=== PATIENT | female | born 1990 | race Caucasian/White ===

== ENCOUNTER → 2017-01-02 | Outpatient (REF) | payer OTHER ==
[~2017-01-02] MED LIST: /QUET25TA PO; BACL10TA2 OR; Birth control pill PO; CELE10TA OR; DOCQ100C PO; DOXY-197 PO; FLUC100T PO; IMIT50TA PO; LYRI75CA PO; MEGA625S PO; MEGE40TA2 PO; MELO15TA4 PO; NAPR250T45 PO; NORCOBULK PO; PREG50CA OR; VALT1TAB PO; VOLT1GEL EX; ZOLO50TA PO
== END ==
LOC: M LABNEURO 13:33
PROVIDERS: ATTEND Physician Assistant Medical
DX: G89.29 Other chronic pain (principal)

== ENCOUNTER → 2017-04-05 | Outpatient (REF) | payer OTHER ==
[~2017-04-05] MED LIST changes: +ALBU83IN INH; +ANOR1AER INH; +CARI350T PO; +CLON0.5T PO; +DEPO150I IM; +HYDR-643 PO; +IPRASOL4 IN; +MONT10TA2 PO; +NORC1TAB4 PO; +NYST50SS SS; +PRED10TA2 PO; +PRED20TA PO; +PROT1TAB2 PO; +PULM90IN INH; +SUMA100T2 PO; +VENTAER INH
[2017-04-10 10:09] LABS: BENZODIAZEPINES, URINE SCREEN Negative ng/mL (Cutoff=200); METHADONE, URINE SCREEN Negative ng/mL (Cutoff=300); OPIATES, URINE Positive ng/mL (Cutoff=300); pH, URINE 6.6 (4.5-8.9)
== END ==
LOC: M LABNEURO 12:49
PROVIDERS: ATTEND Physician Assistant Medical
DX: G89.4 Chronic pain syndrome (principal)

== ENCOUNTER → 2017-06-13 | Outpatient (REF) | payer OTHER ==
[2017-06-22 00:07] LABS: BENZODIAZEPINES, URINE SCREEN See Final Results ng/mL (Cutoff=200); METHADONE, URINE SCREEN Negative ng/mL (Cutoff=300); OPIATES, URINE Positive ng/mL (Cutoff=300); pH, URINE 5.4 (4.5-8.9)
== END ==
LOC: MERGE 11:01 → M LABNEURO 11:01
PROVIDERS: ATTEND Physician Assistant Medical
DX: G89.4 Chronic pain syndrome (principal)

== ENCOUNTER → 2017-07-13 | Outpatient (CLI) | payer OTHER ==
--- NOTE | 2017-07-13 13:18 | REP ---
CT study of the chest without contrast: History: Ground-glass opacities in the lung bases. Comparison CT studies are reviewed, the most recent of these is from May 07, 2017. The lung bases are reviewed from abdominal CT studies from [address] findings: There are multiple bilateral anterolateral rib fractures which are healing. There is no evidence of pneumothorax or hydrothorax. No mediastinal mass or hematoma is seen. No pericardial effusion is seen. The visualized upper abdominal structures are unremarkable. No extrathoracic mass or adenopathy is observed. There are multifocal areas of ground-glass opacity. On today's exam, these most prominently involve the left upper lobe perihilar region, lingular segment of the left upper lobe, and left lower lobe infrahilar region. Previously noted areas of right upper, middle and lower lobe ground-glass opacity have resolved. The pattern on the left is a different distribution than was present on the most recent prior study of May 11, 2017 and this pattern was different than that seen in April 2017. No other abnormality is observed. No significant pulmonary nodule is seen. There is a granulomatous calcification in the left lower lobe. Impression: 1. Multiple healing rib fractures bilaterally. 2. Waxing and waning pattern of bilateral ground-glass opacities. The current study shows scattered similar opacities in the left lung in a different distribution than on the prior study. Question hypersensitivity or eosinophilic pneumonitis. Signed by Vinicius Infante MD 07/13/2017 05:10 P
== END ==
LOC: M RAD 09:05 → MERGE 09:30
PROVIDERS: ATTEND Internal Medicine Pulmonary Disease
DX: R91.8 Other nonspecific abnormal finding of lung field (principal)

== ENCOUNTER → 2017-07-14 | Outpatient (CLI) | payer OTHER ==
--- NOTE | 2017-07-14 12:26 | REP ---
UNILATERAL RIGHT RIBS, PA CHEST, FIVE VIEWS. HISTORY: Contusion. CONCLUSIONS: 07/12/2017 The lungs are clear. The heart is normal in size. The pulmonary vasculature is normal in appearance. There are healing fractures of the right 5th through 9th ribs and left 7th through 10th ribs. IMPRESSION: No acute disease. Signed by Reji Hyman MD 07/14/2017 12:30 P
== END ==
LOC: M WUC 11:06
PROVIDERS: ATTEND Physician Assistant
DX: S20.211A Contusion of right front wall of thorax, initial encounter (principal); X58.XXXA Exposure to other specified factors, initial encounter; Y92.89 Other specified places as the place of occurrence of the external cause; Y93.89 Activity, other specified; Y99.8 Other external cause status

== ENCOUNTER → 2017-07-20 | Outpatient (CLI) | payer OTHER ==
[2017-07-20 20:00] LABS: IMMUNOGLOBULIN M 92.8 MG/DL (40-230)
[2017-07-31 00:07] LABS: AUREOBASIDIUM PULLULANS Negative (Negative); D001-IgE D pteronyssinus <0.10 kU/L (Class 0); E001-IgE Cat Epith/Dander < 0.10 kU/L (Class 0); E005-IgE Dog Dander < 0.10 kU/L (Class 0); G002-IgE Bermuda Grass < 0.10 kU/L (Class 0); G008-IgE Kentucky Bluegrass < 0.10 kU/L (Class 0); IgG SERUM (part of Subclasses) 768 mg/dL (700-1600); IgG Subclass 1 437 mg/dL (248-810); IgG Subclass 2 234 mg/dL (130-555); IgG Subclass 3 33 mg/dL (15-102); IgG Subclass 4 72 mg/dL (2-96); M001-IgE Penicillium chrysogen < 0.10 kU/L (Class 0); M002 IgE Cladosporium herbaru < 0.10 kU/L (Class 0); M003 IgE Aspergillus fumigatu < 0.10 kU/L (Class 0); M006-IgE Alternaria alternata < 0.10 kU/L (Class 0); MICROPOLYSPORA FAENI AB Negative (Negative); PIGEON SERUM AB Negative (Negative); T001-IgE Maple/Box Elder < 0.10 kU/L (Class 0); T003-IgE Common Silver Birch < 0.10 kU/L (Class 0); T007-IgE Oak, White < 0.10 kU/L (Class 0); T008-IgE Elm, American < 0.10 kU/L (Class 0); T015-IgE Ash, White < 0.10 kU/L (Class 0); T041-IgE Hickory, White < 0.10 kU/L (Class 0); THERMOACTINOMYCES SACCHARI Negative (Negative); THERMOACTINOMYCES VULGARIS Negative (Negative); W001-IgE Ragweed, Short < 0.10 kU/L (Class 0); W009-IgE Plantain, English < 0.10 kU/L (Class 0); W014-IgE Pigweed, Rough < 0.10 kU/L (Class 0); W018-IgE Sheep Sorrel < 0.10 kU/L (Class 0)
== END ==
LOC: M SMT 10:12
PROVIDERS: ATTEND Internal Medicine Pulmonary Disease
DX: R91.8 Other nonspecific abnormal finding of lung field (principal); R05 Cough

== ENCOUNTER → 2017-09-13 | Outpatient (CLI) | payer OTHER ==
--- NOTE | 2017-09-13 16:55 | REP ---
CT of the chest without IV contrast: Comparisons are 05/11/2017, 09/20/2017 and 08/02/2017. On 05/11/2017. There were ground-glass opacities bilaterally. Of 07/13/2017. The previous ground-glass opacities had resolved , however, there were new ground-glass opacities. On 08/02/2017. The previous ground-glass opacities had resolved but there were new fewer ground-glass opacities. On the study today there are no ground-glass opacities. There are no lung nodules or masses. There are no infiltrates or effusions. There is no mediastinal or axillary adenopathy. Study is insensitive for hilar adenopathy in the absence of IV contrast. The unenhanced thoracic aorta is remarkable unremarkable. Cardiac size is normal. The visualized upper abdominal contents are unremarkable and unchanged. Impression: Negative CT study of the chest without IV contrast. The previous migrating ground-glass opacities have resolved. There are no nodules, masses, infiltrates or effusions. Signed by Vj Beltran MD 09/13/2017 04:46 P
== END ==
LOC: M RAD 14:09
PROVIDERS: ATTEND Internal Medicine Pulmonary Disease
DX: R91.8 Other nonspecific abnormal finding of lung field (principal)

== ENCOUNTER → 2017-10-18 | Outpatient (CLI) | payer OTHER ==
[~2017-10-18] MED LIST changes: -/QUET25TA PO; -ALBU83IN INH; -ANOR1AER INH; -BACL10TA2 OR; -Birth control pill PO; -CARI350T PO; -CELE10TA OR; -CLON0.5T PO; -DEPO150I IM; -DOCQ100C PO; -DOXY-197 PO; -FLUC100T PO; -HYDR-643 PO; -IMIT50TA PO; -IPRASOL4 IN; -LYRI75CA PO; -MEGA625S PO; -MEGE40TA2 PO; -MELO15TA4 PO; +METHACHOLINE KIT (J7674) INH; -MONT10TA2 PO; -NAPR250T45 PO; -NORC1TAB4 PO; -NORCOBULK PO; -NYST50SS SS; -PRED10TA2 PO; -PRED20TA PO; -PREG50CA OR; -PROT1TAB2 PO; -PULM90IN INH; -SUMA100T2 PO; -VALT1TAB PO; -VENTAER INH; -VOLT1GEL EX; -ZOLO50TA PO
== END ==
LOC: M CARPUL 07:54
DX: R05 Cough (principal); R06.00 Dyspnea, unspecified

== ENCOUNTER → 2017-11-21 | Outpatient (CLI) | payer OTHER ==
[2017-11-21 11:54] LABS: WEIGHT OF SWEAT LFT ARM 55.1 MG; WEIGHT OF SWEAT RT ARM QNS MG
[2017-11-21 11:55] LABS: SWEAT TEST LFT ARM 19.5 MEQ CL/L (0.0-40.0)
== END ==
LOC: M LAB 09:30
DX: J45.51 Severe persistent asthma with (acute) exacerbation (principal)
CPT/HCPCS: 89230

== ENCOUNTER → 2017-11-30 | Outpatient (CLI) | payer OTHER | LOC: M SMT 08:49 | DX: S22.42XD Multiple fractures of ribs, left side, subsequent encounter for fracture with routine healing (principal) | CPT/HCPCS: 71046 ==

== ENCOUNTER → 2018-05-15 | Outpatient (REF) | payer OTHER | LOC: M LAB REF 11:04 | DX: G89.29 Other chronic pain (principal) ==

== ENCOUNTER → 2018-06-28 | Outpatient (REF) | payer OTHER | LOC: M SFHCLERA 14:23 | DX: J02.9 Acute pharyngitis, unspecified (principal) ==

== ENCOUNTER → 2018-07-03 | Outpatient (REF) | payer OTHER | LOC: M LAB REF 17:30 | DX: J45.40 Moderate persistent asthma, uncomplicated (principal); R05 Cough ==

== ENCOUNTER → 2018-08-17 | Outpatient (CLI) | payer OTHER | LOC: M RAD 14:07 | DX: Z12.39 Encounter for other screening for malignant neoplasm of breast (principal); O92.6 Galactorrhea | CPT/HCPCS: 77066 ==

== ENCOUNTER → 2019-02-08 | Outpatient (REF) | payer OTHER ==
[~2019-02-08] MED LIST changes: +ALBU83IN INH; +ANOR1AER INH; +BACL10TA2 OR; +Birth control pill PO; +CARI1TAB7 PO; +CELE10TA OR; +CLON0.5T8 PO; +DEPO150I IM; +DOCQ100C PO; +DOXY-197 PO; +FLUC100T PO; +HYDR-643 PO; +IMIT50TA PO; +IPRA0.00 IN; +LYRI75CA PO; +MEGA625S PO; +MEGE40TA2 PO; +MELO15TA28 PO; -METHACHOLINE KIT (J7674) INH; +MONT10TA2 PO; +NAPR250T82 PO; +NORC1TAB7 PO; +NORCOBULK PO; +NYST50SS SS; +PRED10TA2 PO; +PRED20TA PO; +PREG50CA OR; +PROT1TAB2 PO; +PULM90IN INH; +SERO1TAB3 PO; +SUMA100T2 PO; +VALT1TAB PO; +VENTAER INH; +VOLT1GEL EX; +ZOLO50TA PO
[2019-02-14 14:14] LABS: ALPRAZOLAM, URINE Negative (Cutoff=100); BENZODIAZEPINES, URINE Positive ng/mL (Cutoff=100); CLONAZEPAM, URINE Positive (.); CLONAZEPAM, URINE CONFIRM 266 ng/mL (Cutoff=100); CODEINE, URINE Negative (Cutoff=100); FLURAZEPAM, URINE Negative (Cutoff=100); HYDROCODONE CONFIRM, URINE 3660 ng/mL (Cutoff=100); HYDROCODONE, URINE Positive (.); HYDROMORPHONE CONFIRM, URINE 566 ng/mL (Cutoff=100); HYDROMORPHONE, URINE Positive (.); LORAZEPAM, URINE Negative (Cutoff=100); MIDAZOLAM, URINE Negative (Cutoff=100); MORPHINE, URINE Negative (Cutoff=100); NORDIAZEPAM, URINE Negative (Cutoff=100); OPIATES, URINE Positive ng/mL (Cutoff=300); OXAZEPAM, URINE Negative (Cutoff=100); TEMAZEPAM, URINE Negative (Cutoff=100); TRIAZOLAM, URINE Negative (Cutoff=100)
== END ==
LOC: M LAB REF 12:34
PROVIDERS: ATTEND Physician Assistant Medical
DX: G89.4 Chronic pain syndrome (principal)

== ENCOUNTER 2019-07-02 01:34 | Inpatient (IN) | payer OTHER ==
[~2019-07-02] VITALS: Ht 152.4 cm; Wt 39.7 kg
[2019-07-02] MEDS ORDERED: SOMA350T PO ×2 (01:52→02:17)
[2019-07-02] MEDS ORDERED: ALBU8.5H INH (02:17)
[2019-07-02] MEDS ORDERED: CLON0.5T8 PO (02:17)
[2019-07-02] MEDS ORDERED: IPRA0.00 INH (02:17)
[2019-07-02] MEDS ORDERED: IBUP1TAB6 PO (02:17)
[2019-07-02] MEDS ORDERED: METH2.5T48 PO (02:17)
[2019-07-02] MEDS ORDERED: dexameTHASONE 20 MG/5 ML VIAL (J1100) IV ONE (02:30)
[2019-07-02 02:38] LABS: ABG BASE EXCESS -4.1 (-2.0-2.0); ABG O2 SATURATION 98.6 % (95.0-99.0); ABG PARTIAL PRESSURE CO2 38.9 mmHg (35.0-45.0); ABG PARTIAL PRESSURE O2 126.3 mmHg (75.0-100.0); ABG STANDARD HCO3 21.1 MEQ/L (22.0-26.0); ABG TOTAL CO2 22.2 MEQ/L (22.0-29.0); ABG pH (ARTERIAL) 7.351 UNITS (7.350-7.450)
[2019-07-02] MEDS: IPRATROPIUM 0.5MG/ALBUTEROL 2.5MG INH SOL UD 3ML (DUONEB)(J7620) NEB SCH ×6 (02:49→19:39)
[2019-07-02] MEDS: ALBUTEROL SULFATE 2.5 MG/0.5 ML INH NEB SOLN INH SCH ×3 (02:49→09:12)
[2019-07-02] MEDS ORDERED: methylPREDNISolone INJ 125 MG/2 ML VIAL (J2930) IV STA (03:28)
[2019-07-02] MEDS ORDERED: ALBUTEROL SULFATE 2.5 MG/0.5 ML INH NEB SOLN NEB PRN (03:30)
--- NOTE | 2019-07-02 03:33 | HPEPDOC ---
[facility] Medical History & Physical Date of Admission Jul 02, 2019 Date of Service: Jul 02, 2019 Primary Care Physician: A Other Provider Mariano Donovan MD Attending Physician: NOLBERTO ELENA MD History and Physical TIME OF SERVICE: 3:15 AM CHIEF COMPLAINT: Shortness of breath HISTORY OF PRESENT ILLNESS: This is a 28-year-old female who presented to [facility] complaints of dyspnea for 2 days associated with a cough productive of clear sputum. Associated symptoms included runny nose, fever, chills, muscle aches, poor appetite. The initial workup [place] was remarkable for WBC count of 18, lactic acid of 4.8, VBG 7.35, PCO2 42, PCO2 22, and a CTA that was negative for PE but identified pneumonia. Started on DuoNeb's, Solu-Medrol, Levaquin and IV fluids. Repeat lactic acid was 2.9. She was very anxious and given a dose of Ativan. Currently, she reports that her dyspnea still severe. She was crying teary because a friend recently . REVIEW OF SYSTEMS: 12 point review of systems negative except as listed in HPI PAST MEDICAL/ SURGICAL HISTORY: Asthma Mixed connective tissue disease. PTSD Fibromyalgia Migraines Anxiety Status post tubal ligation. Status post appendectomy. 3 SOCIAL HISTORY: Smoker. FAMILY HISTORY: Multiple relatives with asthma Diabetes Hypertension COPD ALLERGIES: Please see below. HOME MEDICATIONS: Please see below. PHYSICAL EXAMINATION: VITAL SIGNS: Please see below. GENERAL APPEARANCE: Slim build, anxious, HEENT: Normocephalic, atraumatic. Has conjunctival injection from crying. Nasal cannula is in place, mucous membranes are moist and pink CARDIOVASCULAR: Tachycardic. There is no lower extremity edema LUNGS: She is able to speak full sentences but is using accessory muscles in breathing or rapid rate. There is expiratory wheezing bilaterally ABDOMEN: Flat MUSCULOSKELETAL: Range of motion intact in all 4 extremities INTEGUMENT: She has multiple tattoos NEUROLOGICAL: Cranial nerves II-12 grossly intact. Speech is not dysarthric PSYCHIATRIC: Alert and oriented to person, place and time, able to understand and follow commands, is anxious and is crying LABORATORY DATA: See history of present illness ABG done here showed pH of 7.35, PCO2 30, PO2 126 IMAGING: See history of present illness Chest x-ray done here showed right-sided pneumonia MICROBIOLOGY: n/a ASSESSMENT: Ms. Tony is a 20 yr old female with a past medical history of mixed connective tissue disease, asthma, migraines, anxiety, PTSD, and Fibromyalgia who will be admitted for management of sepsis due to pneumonia. PLAN: 1. Sepsis secondary to pneumonia SIRS criteria include elevated heart rate, elevated WBC count, and elevated lactic acid She received IV fluids and antibiotics at [place] Plan: Admit to ICU/continue with IV fluids/follow-up lactic acid, blood cx & influenza 2. Acute on chronic Asthma 2/2 PNA Plan: continuos pulse ox / c/w Vapotherm & levofloxacin/follow up repeat ABG/continue with steroids and Protonix/ Dunebs Q6H, Albuterol Q1HP / oral Prednisone w PPI / Magnesium IV / Tessalon Pearls / will ask RN to monitor peak flow Q12H 3. Tobacco abuse. Plan: Tobacco cessation education/patient declined nicotine patch 4.Low BMI Plan: order to delivery supervisor consult / f/u prealbumin 5.Mixed connective tissue disease. Plan: Continue home meds 6.PTSD / Fibromyalgia / Anxiety Plan: Continue home meds / daytime team may consider psychiatry consult 7.Migraines Plan: Continue home meds DVT prophylaxis with Lovenox. Disposition pending clinical course Vital Signs Vital Signs Date Time Temp Pulse Resp B/P (MAP) Pulse Ox O2 Delivery O2 Flow Rate FiO2 07/02/19 03:18 Nasal Cannula 25.0 45 07/02/19 02:36 106 07/02/19 01:52 97.1 19 119/70 (86) 94 Laboratory Data Labs 24H Laboratory Tests 2 07/02/19 02:27: Blood Gas Bicarbonate Standard 21.1L, Arterial Blood pH 7.351, Arterial Blood Partial Pressure CO2 38.9, Arterial Blood Partial Pressure O2 126.3H, Arterial Blood Total CO2 22.2, Arterial Blood HCO3 21.0L, Arterial Blood Base Excess - 4.1L, Arterial Blood Oxygen Saturation 98.6 Home Medications Scheduled Amitriptyline HCl (Amitriptyline HCl) 25 Mg Tablet, 25 MG PO QHS Fluconazole (Fluconazole) 100 Mg Tablet, 100 MG PO DAILY Fluticasone Furoate (Arnuity Ellipta) 200 Mcg Blst.w.dev, 200 MCG INH DAILY Fluticasone Propion/Salmeterol (Advair Hfa 230-21 Mcg Inhaler) 12 Gm Hfa.aer.ad, 2 PUFF INH BID Folic Acid (Folic Acid) 1 Mg Tablet, 1 MG PO DAILY Levofloxacin (Levaquin) 750 Mg Tablet, 750 MG PO DAILY Methotrexate Sodium (Methotrexate) 2.5 Mg Tablet, 12.5 MG PO 1XWK STEPHANY NIGHT Omeprazole (Omeprazole) 40 Mg Capsule.dr, 40 MG PO DAILY Prednisone (Prednisone) 10 Mg Tablet, 10 MG PO TAPER Take 4 tabs daily x 3 days, then 3 tabs daily x 3 days, then 2 tabs daily x 3 days, then 1 tab daily x 3 days and stop Ranitidine Hcl (Ranitidine HCl) 150 Mg Tablet, 1 TAB PO QHS Scheduled PRN Albuterol Sulfate (Albuterol Sulfate Hfa) 8.5 Gm Hfa.aer.ad, 2 PUFFS INH Q4H PRN for SHORTNESS OF BREATH Carisoprodol (Soma) 350 Mg Tablet, 350 MG PO BID PRN for MUSCLE SPASMS Clonazepam (Clonazepam) 0.5 Mg Tablet, 0.5 MG PO DAILY PRN for ANXIETY Hydrocodone/Acetaminophen ([place] 5-325 Tablet) 1 Tab Tab, 1 TAB PO BID PRN for PAIN Nicotine Polacrilex (Nicotine Lozenge) 2 Mg Lozenge, 2 MG MT Q1H PRN for SMOKING CESSATION Allergies Coded Allergies: bupropion (Verified Allergy, Unknown, 07/02/19) meperidine (Verified Allergy, Unknown, SHAKING, SWELLING, ITCHING , 07/02/19) tramadol (Verified Allergy, Unknown, SHAKING, SWELLING, ITCHING , 07/02/19) A-FIB/CHADSVASC A-FIB History Current/History of A-Fib/PAF?: No Current PO Anticoag Therapy: No NOLBERTO ELENA MD Jul 02, 2019 03:33
[2019-07-02] MEDS ORDERED: MAG SULF 1GM/100ML (MAG RUN) 1 GM in IV 1 EA IV ONE (04:30)
[2019-07-02 05:02] VITALS: BP 122/71
[2019-07-02 05:33] LABS: BASO % 0.1 % (0.0-1.0); HEMATOCRIT 33.4 % (36.0-47.0); LYMPH # 0.3 10^3/uL (1.5-5.0); LYMPH % 1.3 % (24.0-44.0); MEAN CORPUSCULAR HEMOGLOBIN 33.8 pg (27.0-33.0); MEAN CORPUSCULAR HGB CONC 32.9 g/dl (32.0-36.5); MEAN CORPUSCULAR VOLUME 102.8 fl (80.0-96.0); MONO # 0.6 10^3/uL (0.0-0.8); NEUTROPHILS # 18.5 10^3/uL (1.5-8.5); NEUTROPHILS % 94.8 % (36.0-66.0); PLATELET COUNT, AUTOMATED 207 10^3/uL (150-450); RED BLOOD COUNT 3.25 10^6/uL (4.00-5.40); WHITE BLOOD COUNT 19.5 10^3/uL (4.0-10.0)
[2019-07-02] MEDS: NS 1,000 ML IV SCH ×2 (05:45→14:38)
[2019-07-02] MEDS: BENZONATATE 100 MG CAP PO SCH ×3 (05:46→19:49)
[2019-07-02 05:57] LABS: BLOOD UREA NITROGEN 6 MG/DL (7-18); CALCIUM LEVEL 7.9 MG/DL (8.5-10.1); CARBON DIOXIDE LEVEL 25 MEQ/L (21-32); CHLORIDE LEVEL 111 MEQ/L (98-107); CREATININE FOR GFR 0.58 MG/DL (0.55-1.30); GLOMERULAR FILTRATION RATE > 60.0 (>60); GLUCOSE, FASTING 148 MG/DL (70-100); MAGNESIUM LEVEL 2.2 MG/DL (1.8-2.4); POTASSIUM SERUM 3.8 MEQ/L (3.5-5.1); SODIUM LEVEL 143 MEQ/L (136-145)
[2019-07-02] MEDS ORDERED: ACETAMINOPHEN TAB 650MG DOSE (2X325MG) PO PRN (06:15)
[2019-07-02] MEDS ORDERED: ADVA230A INH (06:16)
[2019-07-02] MEDS ORDERED: OMEP-221 PO (06:16)
[2019-07-02] MEDS ORDERED: RANI1TAB38 PO (06:16)
[2019-07-02] MEDS ORDERED: AMIT25TA PO (06:16)
[2019-07-02] MEDS ORDERED: FLUC100T PO (06:16)
[2019-07-02] MEDS ORDERED: FOLI1TAB11 PO (06:16)
[2019-07-02] MEDS ORDERED: NICO4LOZ MT (06:16)
[2019-07-02] MEDS ORDERED: ARNU1INH3 INH (06:16)
[2019-07-02 06:18] LABS: ABG HCO3 21.7 MEQ/L (22.0-26.0); ABG O2 SATURATION 99.4 % (95.0-99.0); ABG PARTIAL PRESSURE CO2 37.2 mmHg (35.0-45.0); ABG PARTIAL PRESSURE O2 198.8 mmHg (75.0-100.0); ABG TOTAL CO2 22.8 MEQ/L (22.0-29.0); ABG pH (ARTERIAL) 7.383 UNITS (7.350-7.450)
[2019-07-02 06:32] LABS: INFLUENZA A AMPLIFICATION NEGATIVE (NEGATIVE); INFLUENZA B AMPLIFICATION NEGATIVE (NEGATIVE)
--- NOTE | 2019-07-02 07:55 | REP ---
Portable chest x-ray: Single view. History: Dyspnea. Comparison study: November 30, 2017. Findings: EKG monitoring electrodes overlie the chest. Oxygen delivery tubing is seen. Nipple jewelry is noted. The lungs are symmetrically aerated and free of infiltrate. Cardiomediastinal silhouette is unremarkable. No significant bony abnormality is seen. Impression: No active cardiopulmonary disease. Electronically Signed by Vinicius Infante MD 07/02/2019 07:48 A
[2019-07-02 08:00] VITALS: BP 124/73
[2019-07-02] MEDS ORDERED: predniSONE 20 MG TAB PO SCH (09:00)
[2019-07-02] MEDS ORDERED: LevoFLOXacin IV 750 MG in IV 1 EA IV SCH (09:00)
[2019-07-02] MEDS: clonazePAM 0.5 MG TAB PO PRN ×2 (09:25→19:49)
[2019-07-02] MEDS: PANTOPRAZOLE 40MG TAB (PROTONIX) PO SCH (09:25)
[2019-07-02] MEDS: LevoFLOXacin IV 750 MG in IV 1 EA IV SCH (09:25)
[2019-07-02] MEDS: ENOXAPARIN 40 MG/0.4 ML SYRINGE (J1650) SC SCH (09:25)
[2019-07-02] MEDS: NORCO, ANEXSIA 5/325MG TABLET (HYDROcodone/ACETAMINOPHEN) PO PRN (09:26)
[2019-07-02 12:00] VITALS: BP 108/67
[2019-07-02] MEDS: PERCOCET 5MG/325MG TAB PO PRN ×2 (14:39→21:00)
[2019-07-02 16:00] VITALS: BP_SYST 103; BP_SYST 112; BP_DIAS 64
[2019-07-02] MEDS: methylPREDNISolone INJ 125 MG/2 ML VIAL (J2930) IV SCH (17:25)
[2019-07-02 19:41] VITALS: O2SAT 99
[2019-07-02] MEDS ORDERED: CEPACOL LOZENGE PO PRN (19:45)
[2019-07-02] MEDS ORDERED: CARISOPRODOL 350 MG TAB PO PRN (19:45)
[2019-07-02] MEDS ORDERED: clonazePAM 0.5 MG TAB PO PRN (19:45)
[2019-07-02] MEDS ORDERED: NORCO, ANEXSIA 5/325MG TABLET (HYDROcodone/ACETAMINOPHEN) PO PRN (19:45)
[2019-07-02 20:00] VITALS: BP 140/97
[2019-07-02] MEDS ORDERED: AMITRIPTYLINE 25 MG TAB PO SCH (21:00)
[2019-07-03] MEDS: methylPREDNISolone INJ 125 MG/2 ML VIAL (J2930) IV SCH ×2 (00:04→08:47)
[2019-07-03 00:07] VITALS: BP 111/71
[2019-07-03] MEDS: NS 1,000 ML IV SCH (00:30)
[2019-07-03] MEDS: IPRATROPIUM 0.5MG/ALBUTEROL 2.5MG INH SOL UD 3ML (DUONEB)(J7620) NEB SCH ×2 (01:20→08:26)
[2019-07-03 04:00] VITALS: BP 131/86
[2019-07-03] MEDS: BENZONATATE 100 MG CAP PO SCH (04:46)
[2019-07-03] MEDS: PERCOCET 5MG/325MG TAB PO PRN (04:46)
[2019-07-03 05:11] LABS: ALBUMIN 2.7 GM/DL (3.2-5.2); ALT/SGPT 58 U/L (12-78); BILIRUBIN,TOTAL 0.3 MG/DL (0.2-1.0); BLOOD UREA NITROGEN 8 MG/DL (7-18); CALCIUM LEVEL 8.4 MG/DL (8.5-10.1); CARBON DIOXIDE LEVEL 25 MEQ/L (21-32); CHLORIDE LEVEL 115 MEQ/L (98-107); CREATININE FOR GFR 0.47 MG/DL (0.55-1.30); GLOMERULAR FILTRATION RATE > 60.0 (>60); GLUCOSE, FASTING 129 MG/DL (70-100); POTASSIUM SERUM 4.4 MEQ/L (3.5-5.1); SODIUM LEVEL 145 MEQ/L (136-145); TOTAL PROTEIN 6.3 GM/DL (6.4-8.2)
[2019-07-03 08:00] VITALS: BP 110/73
[2019-07-03] MEDS: clonazePAM 0.5 MG TAB PO PRN ×2 (08:24→10:23)
[2019-07-03 08:30] LABS: HEMATOCRIT 35.6 % (36.0-47.0); HEMOGLOBIN 11.5 g/dl (12.0-15.5); MEAN CORPUSCULAR HEMOGLOBIN 34.4 pg (27.0-33.0); MEAN CORPUSCULAR HGB CONC 32.3 g/dl (32.0-36.5); MEAN CORPUSCULAR VOLUME 106.6 fl (80.0-96.0); PLATELET COUNT, AUTOMATED 194 10^3/uL (150-450); RED BLOOD COUNT 3.34 10^6/uL (4.00-5.40); WHITE BLOOD COUNT 14.7 10^3/uL (4.0-10.0)
[2019-07-03] MEDS: ENOXAPARIN 40 MG/0.4 ML SYRINGE (J1650) SC SCH (08:46)
[2019-07-03] MEDS: LevoFLOXacin IV 750 MG in IV 1 EA IV SCH (08:46)
[2019-07-03] MEDS: PANTOPRAZOLE 40MG TAB (PROTONIX) PO SCH (08:47)
[2019-07-03] MEDS ORDERED: FOLIC ACID 1 MG TAB PO SCH (09:00)
[2019-07-03] MEDS ORDERED: LEVA750T7 PO (09:44)
[2019-07-03] MEDS ORDERED: PRED10TA2 PO (09:44)
--- NOTE | 2019-07-03 10:35 | REP ---
Portable chest x-ray: Single view. History: Pneumonia. Comparison chest x-ray: July 02, 2019. Findings: EKG electrodes and oxygen delivery tubing are seen. The lungs are symmetrically aerated. No infiltrate is seen. Pleural angles are sharp. Heart is not enlarged. Impression: No infiltrate seen. Electronically Signed by Vinicius Infante MD 07/03/2019 07:52 A
[2019-07-03] MEDS: NORCO, ANEXSIA 5/325MG TABLET (HYDROcodone/ACETAMINOPHEN) PO PRN (10:53)
--- NOTE | 2019-07-03 11:35 | DS.PDOC ---
Discharge Summary General Date of Admission Jul 02, 2019 at 03:28 Date of Discharge 07/03/19 Attending Physician: PRECIOUS RIVERA MD Discharge Summary PROCEDURES PERFORMED DURING STAY: None. ADMITTING DIAGNOSES: 1. Sepsis, pneumonia, exacerbation of asthma DISCHARGE DIAGNOSES: 1. Sepsis, pneumonia, exacerbation of asthma COMPLICATIONS/CHIEF COMPLAINT: Asthma, Pneumonia. HISTORY OF PRESENT ILLNESS: This is a 28-year-old female who presented to [facility] complaints of dyspnea for 2 days associated with a cough productive of clear sputum. Associated symptoms included runny nose, fever, chills, muscle aches, poor appetite. The initial workup [place] was remarkable for WBC count of 18, lactic acid of 4.8, VBG 7.35, PCO2 42, PCO2 22, and a CTA that was negative for PE but identified pneumonia. Started on DuoNeb's, Solu- Medrol, Levaquin and IV fluids. Repeat lactic acid was 2.9. She was very anxious and given a dose of Ativan. Currently, she reports that her dyspnea still severe. She was crying teary because a friend recently .. HOSPITAL COURSE: Ms. Tony is a 20 yr old female with a past medical history of mixed connective tissue disease, asthma, migraines, anxiety, PTSD, and Fibromyalgia who will be admitted for management of sepsis due to pneumonia. Sepsis , most likely secondary to pneumonia SIRS criteria include elevated heart rate, elevated WBC count, and elevated lactic acid She received IV fluids and antibiotics at [place] Patient was admitted to ICU, continued on IV fluids. Blood cultures and influenza were ordered chest x-ray essentially did not show any evidence of pneumonia, but patient has responded clinically very well to IV antibiotics and IV fluids. Patient's repeat WBC count is 14.7, down from 19,000 and repeat x-ray again does not show any evidence of pneumonia Patient is clinically stable. She is on by mouth Levaquin and can be discharged home on by mouth antibiotics and the heparin dose of prednisone for exacerbation of asthma. Patient advised to follow with her PCP in one week . DISCHARGE MEDICATIONS: Please see below. ALLERGIES: Please see below. PHYSICAL EXAMINATION ON DISCHARGE: VITAL SIGNS: Please see below. GENERAL: Is in normal limits HEENT: PERRLA. Extraocular muscles intact NECK: Supple CARDIOVASCULAR EXAMINATION: S1, S2, regular RESPIRATORY EXAMINATION: Clear to A&P ABDOMINAL EXAMINATION: Benign EXTREMITIES: No clubbing, cyanosis, edema SKIN: Within normal limits NEUROLOGICAL EXAMINATION: . No focal motor sensory deficit PSYCHIATRIC EXAMINATION: Within normal limits LABORATORY DATA: Please see below. IMAGING: Chest x-ray, no infiltrates seen PROGNOSIS: Good ACTIVITY: As tolerated. DIET: Regular DISCHARGE PLAN: Follow with PCP in one week DISPOSITION: 01 Home, Self-Care. DISCHARGE INSTRUCTIONS: 1. As per discharge instructions. ITEMS TO FOLLOWUP ON ON OUTPATIENT: 1. Follow with PCP in one week. DISCHARGE CONDITION: Stable. TIME SPENT ON DISCHARGE: 45 minutes. Vital Signs/I&Os Vital Signs Date Time Temp Pulse Resp B/P (MAP) Pulse Ox O2 Delivery O2 Flow Rate FiO2 07/03/19 10:53 20 07/03/19 08:27 Nasal Cannula 1.0 07/03/19 08:00 98.3 64 110/73 (85) 95 07/02/19 07:27 30 I&O- Last 24 Hours up to 6 AM 07/03/19 06:00 Intake Total 3680 ml Output Total 2500 ml Balance 1180 ml Laboratory Data Labs 24H Laboratory Tests 2 07/02/19 16:49: Lactic Acid Level 2.0 07/03/19 04:32: Nucleated Red Blood Cells % (auto) 0.0, Anion Gap 5L, Glomerular Filtration Rate > 60.0, Blood Urea Nitrogen 8, Creatinine 0.47L, Sodium Level 145, Potassium Level 4.4, Chloride Level 115H, Carbon Dioxide Level 25, Calcium Level 8.4L, Aspartate Amino Transf (AST/SGOT) 25, Alanine Aminotransferase (ALT/SGPT) 58, Alkaline Phosphatase 65, Total Bilirubin 0.3, Total Protein 6.3L, Albumin 2.7L, Albumin/Globulin Ratio 0.75L CBC/BMP Laboratory Tests 07/03/19 04:32 Red Blood Count 3.34 L, Mean Corpuscular Volume 106.6 H, Mean Corpuscular Hemoglobin 34.4 H, Mean Corpuscular Hemoglobin Concent 32.3, Red Cell Distribution Width 13.8, Calcium Level 8.4 L, Aspartate Amino Transf (AST/SGOT) 25, Alanine Aminotransferase (ALT/SGPT) 58, Alkaline Phosphatase 65, Total Bilirubin 0.3, Total Protein 6.3 L, Albumin 2.7 L Microbiology Microbiology 07/02/19 Blood Culture - Preliminary, Resulted No growth after 24 hours . All specim... 07/02/19 Blood Culture - Preliminary, Resulted No growth after 24 hours . All specim... Discharge Medications Scheduled Amitriptyline HCl (Amitriptyline HCl) 25 Mg Tablet, 25 MG PO QHS, (Reported) Fluconazole (Fluconazole) 100 Mg Tablet, 100 MG PO DAILY, (Reported) Fluticasone Furoate (Arnuity Ellipta) 200 Mcg Blst.w.dev, 200 MCG INH DAILY, (Reported) Fluticasone Propion/Salmeterol (Advair Hfa 230-21 Mcg Inhaler) 12 Gm Hfa.aer.ad, 2 PUFF INH BID, (Reported) Folic Acid (Folic Acid) 1 Mg Tablet, 1 MG PO DAILY, (Reported) Levofloxacin (Levaquin) 750 Mg Tablet, 750 MG PO DAILY Methotrexate Sodium (Methotrexate) 2.5 Mg Tablet, 12.5 MG PO 1XWK, (Reported) MONDAY NIGHT Omeprazole (Omeprazole) 40 Mg Capsule.dr, 40 MG PO DAILY, (Reported) Prednisone (Prednisone) 10 Mg Tablet, 10 MG PO TAPER Take 4 tabs daily x 3 days, then 3 tabs daily x 3 days, then 2 tabs daily x 3 days, then 1 tab daily x 3 days and stop Ranitidine Hcl (Ranitidine HCl) 150 Mg Tablet, 1 TAB PO QHS, (Reported) Scheduled PRN Albuterol Sulfate (Albuterol Sulfate Hfa) 8.5 Gm Hfa.aer.ad, 2 PUFFS INH Q4H PRN for SHORTNESS OF BREATH, (Reported) Carisoprodol (Soma) 350 Mg Tablet, 350 MG PO BID PRN for MUSCLE SPASMS, (Reported) Clonazepam (Clonazepam) 0.5 Mg Tablet, 0.5 MG PO DAILY PRN for ANXIETY, (Reported) Hydrocodone/Acetaminophen ([place] 5-325 Tablet) 1 Tab Tab, 1 TAB PO BID PRN for PAIN, (Reported) Nicotine Polacrilex (Nicotine Lozenge) 2 Mg Lozenge, 2 MG MT Q1H PRN for SMOKING CESSATION, (Reported) Allergies Coded Allergies: bupropion (Verified Allergy, Unknown, 07/02/19) meperidine (Verified Allergy, Unknown, SHAKING, SWELLING, ITCHING , 07/02/19) tramadol (Verified Allergy, Unknown, SHAKING, SWELLING, ITCHING , 07/02/19) PRECIOUS RIVERA MD Jul 03, 2019 11:35
== END 2019-07-03 10:58 | disposition home or self-care (01) | DRG 720 ==
LOC: M ED 01:34 → M ED INP 03:28 → M ICU 04:51
PROVIDERS: ADMIT Internal Medicine; ATTEND Internal Medicine
DX: A41.9 Sepsis, unspecified organism (principal); J18.9 Pneumonia, unspecified organism; M35.1 Other overlap syndromes; J45.901 Unspecified asthma with (acute) exacerbation; F43.10 Post-traumatic stress disorder, unspecified; M79.7 Fibromyalgia; G43.909 Migraine, unspecified, not intractable, without status migrainosus; F41.9 Anxiety disorder, unspecified; F17.200 Nicotine dependence, unspecified, uncomplicated; Z90.49 Acquired absence of other specified parts of digestive tract; Z79.899 Other long term (current) drug therapy; Z88.5 Allergy status to narcotic agent; Z88.8 Allergy status to other drugs, medicaments and biological substances

== ENCOUNTER → 2020-03-26 | Outpatient (REF) | payer OTHER ==
[~2020-03-26] MED LIST changes: +ADVA230A INH; +ALBU8.5H INH; +AMIT25TA PO; +ARNU1INH3 INH; +CLON0.5T2 PO; -CLON0.5T8 PO; +FOLI1TAB11 PO; +IBUP1TAB6 PO; +IPRA0.00 INH; +LEVA750T7 PO; +METH2.5T48 PO; -MONT10TA2 PO; +MONT10TA4 PO; +NICO4LOZ MT; +OMEP-221 PO; +RANI1TAB38 PO; +SOMA350T PO
[2020-04-02 08:09] LABS: CANNABINOID, URINE Positive (Cutoff=20); CARBOXY THC (GC/MS) 53 ng/mL (Cutoff=10); CODEINE, URINE Negative (Cutoff=100); CREATININE, URINE 39.3 mg/dL (20.0-300.0); HYDROCODONE CONFIRM, URINE 332 ng/mL (Cutoff=100); HYDROCODONE, URINE Positive (.); HYDROMORPHONE CONFIRM, URINE 118 ng/mL (Cutoff=100); HYDROMORPHONE, URINE Positive (.); MORPHINE, URINE Negative (Cutoff=100); OPIATES, URINE Positive ng/mL (Cutoff=300)
== END ==
LOC: M LAB REF 10:25
PROVIDERS: ATTEND Physician Assistant Medical
DX: G89.4 Chronic pain syndrome (principal)

== ENCOUNTER → 2021-04-09 | Outpatient (REF) ==
[~2021-04-09] MED LIST changes: -AMIT25TA PO; +AMIT25TA17 PO; +MONT10TA10 PO; -MONT10TA4 PO
== END ==
LOC: M LABSMTC 10:41
PROVIDERS: ATTEND Pediatrics
DX: Z11.52 Encounter for screening for COVID-19 (principal)

== ENCOUNTER → 2022-10-25 | Outpatient (CLI) | payer OTHER ==
[~2022-10-25] VITALS: Ht 152.4 cm; Wt 46.2 kg
[~2022-10-25] MED LIST changes: +ALBU2.5V10 INH; -ALBU83IN INH; +FLUC100T3 PO; -MONT10TA10 PO; +MONT10TA97 PO; +NYST-38 SS; -NYST50SS SS; -OMEP-221 PO; +OMEP40CA5 PO
[2022-10-25 08:06] VITALS: BP 136/93
== END ==
LOC: M PAL 08:02
PROVIDERS: ATTEND Nurse Practitioner Adult Health
DX: M79.7 Fibromyalgia (principal); M47.26 Other spondylosis with radiculopathy, lumbar region; F41.9 Anxiety disorder, unspecified; F43.10 Post-traumatic stress disorder, unspecified; Z51.5 Encounter for palliative care; R56.9 Unspecified convulsions; Z86.16 Personal history of COVID-19; Z88.6 Allergy status to analgesic agent; Z88.8 Allergy status to other drugs, medicaments and biological substances; Z79.899 Other long term (current) drug therapy; Z79.51 Long term (current) use of inhaled steroids

== ENCOUNTER → 2023-10-24 | Outpatient (CLI) | payer OTHER ==
[~2023-10-24] VITALS: Ht 152.4 cm; Wt 45.6 kg
[~2023-10-24] MED LIST changes: -AMIT25TA17 PO; +AMIT25TA19 PO; +DUPI300I SC; +VARE1TAB7 PO
[2023-10-24 08:13] VITALS: BP 95/73; O2SAT 99
== END ==
LOC: M PAL 07:41
PROVIDERS: ATTEND Nurse Practitioner Adult Health
DX: G89.29 Other chronic pain (principal); M79.7 Fibromyalgia; M47.26 Other spondylosis with radiculopathy, lumbar region; F41.9 Anxiety disorder, unspecified; F43.10 Post-traumatic stress disorder, unspecified; R56.9 Unspecified convulsions; F17.290 Nicotine dependence, other tobacco product, uncomplicated; Z51.5 Encounter for palliative care; Z79.51 Long term (current) use of inhaled steroids; Z79.620 Long term (current) use of immunosuppressive biologic; Z79.899 Other long term (current) drug therapy; Z88.5 Allergy status to narcotic agent; Z88.8 Allergy status to other drugs, medicaments and biological substances